=== PATIENT | female | born 1975 | race Caucasian/White ===

== ENCOUNTER → 2016-10-22 | Outpatient (CLI) | payer SELFPAY ==
[~2016-10-22] MED LIST: ATARAX PO; CELEXA20 MG PO; DIAZIDE; DICYCLOMINE HCL20 MG PO; LORTAB 101 TAB 10/5 PO; MACROBID 100 M100 MG PO; NORFLEX100 M1 PO; PREDNISONE PO; VOLTAREN75 MG PO; ZOFRANODT PO; [UNRECOGNIZED DRUG - OTHER]
== END | disposition home or self-care (01) ==
LOC: CBAR 13:16
DX: Z01.818 Encounter for other preprocedural examination (principal); E66.01 Morbid (severe) obesity due to excess calories
CPT/HCPCS: G0463